=== PATIENT | female | born 1955 | race Hispanic/Latino ===

== ENCOUNTER 2018-12-28 09:58 | Day surgery (SDC) | payer BC ==
[~2018-12-28 09:58] MED LIST: WATER FOR IRRIG STERILE IR ONE; XYLOCAINE MPF 2% ONE
[2018-12-28] MEDS ORDERED: NACL 0.9% 1000 ML 1,000 ML IV SCH (11:00)
--- NOTE | 2018-12-28 11:05 | Anesthesia Day of Surgery ---
Anesthesia Day of Surgery - Day of Surgery Patient Examined: Yes Patient H&P Reviewed: Yes Patient is NPO: Yes
--- NOTE | 2018-12-28 11:06 | Anesthesia Consultation ---
Anesthesia Consult and Med Hx Date of service: 12/28/18 - Airway Anesthetic Teeth Evaluation: Good ROM Head & Neck: Adequate Mental/Hyoid Distance: Adequate Mallampati Class: Class II Intubation Access Assessment: Good - Pre-Operative Health Status ASA Pre-Surgery Classification: ASA2 Proposed Anesthetic Plan: MAC - Pre-Anesthesia Comment Pre-Anesthesia Comments: HX PONV - Additional Comments Anesthesia Medical History Comments: HX LUPUS
[2018-12-28] MEDS ORDERED: DIPRIVAN 10 MG/ML IV ONE ×2 (11:09)
--- NOTE | 2018-12-28 11:54 | Procedure Note ---
Date of procedure: 12/28/18 Pre-op diagnosis: Colon Polyp Screening/Hematochezia Post-op diagnosis: other (Possible Left Colon Ischemic Colitis/ Mild to Moderate Internal Hemorrhoids (not significant enough for Banding)/ No Colon Polyps or Diverticular Disease noted/ R/O Ileitis and Microscopic Colitis) Procedure: Colonoscopy with Biopsy Anesthesia: ENRIKE Surgeon: KEVIN ANGELES Estimated blood loss: minimal Pathology: list Specimen disposition: to lab Condition: stable Disposition: same day (Treat with anti- hemorrhoidal medication. Avoid aspirin and NSAID for 5 days. Follow up in 1 to 2 weeks ([phone]).)
--- NOTE | 2018-12-28 13:23 | Operative Report ---
PROCEDURE: Colonoscopy with biopsy. INDICATIONS: A 63-year-old white female with an underlying history of lupus who has never had a colonoscopy done. Colonoscopy was done as part of colon polyp screening. She has also lately been complaining of some hematochezia and colonoscopy was also done to assess for the problem. DESCRIPTION OF PROCEDURE: The procedure was done after getting informed consent with MAC anesthesia. Initial rectal exam was unremarkable. Instrument was passed through the rectum onto the cecum, which was identified with the ileocecal valve and the appendiceal orifice. Visualization was fair to good. The terminal ileum was intubated showed normal mucosa. Biopsy was done to rule out for possible ileitis. Cecum, ascending colon, transverse colon showed normal mucosa. Random biopsies were done to rule out for microscopic colitis. The distal descending colon as well as the sigmoid colon showed inflammation suggestive possibly of ischemic colitis, which may have been the cause of the bleeding. Photo documentation and biopsy was obtained and the rectum showed mild to moderate internal hemorrhoids not significant enough for banding. ASSESSMENT: Colon polyp screening, no colon polyps noted hematochezia, possibly secondary to [id number] left colon ischemic colitis, rule out ileitis, rule out microscopic colitis. Mild to moderate internal hemorrhoids, not significant enough for banding. There was minimal bleeding from the biopsy sites. No complications associated with the procedure. ASSESSMENT: Colon polyp screening, no colon polyps noted Hematochezia secondary to [id number] left colon ischemic colitis, rule out ileitis, rule out microscopic colitis. Mild to moderate internal hemorrhoids. PLAN: To have the patient be treated with Anusol-HC suppository or also avoid aspirin and aspirin-related products for the next few days. Follow up in the office in 1-2 weeks' time. The patient may require an echocardiogram and further evaluation by a human resources manager if the biopsies come back suggestive of ischemic colitis. The patient's procedure was done in the GI lab with the assistance of the GI lab team, which included BRIAN Frazier and Conrad lynn and also with the assistance of anesthesia. JOB# [id number] CARMITA/JAYE
[2018-12-28 15:33] VITALS: BP 128/49
== END 2018-12-28 09:59 | disposition home or self-care (01) ==
LOC: EDBD 09:58 → GIO 09:58
DX: K52.89 Other specified noninfective gastroenteritis and colitis (principal); K64.8 Other hemorrhoids; K63.89 Other specified diseases of intestine; K92.1 Melena; Z88.8 Allergy status to other drugs, medicaments and biological substances; Z98.890 Other specified postprocedural states
CPT/HCPCS: 45380; 88305; J2704; J7030